=== PATIENT | male | born 1930 | race Caucasian/White ===

== ENCOUNTER → 2017-08-20 | Outpatient (CLI) | payer MEDICARE, OTHER ==
[2017-08-20 08:54] LABS: HEMATOCRIT 31.1 % (42.0-52.0); HEMOGLOBIN 10.8 gm/dL (14.0-18.0)
[2017-08-20 09:08] LABS: ALBUMIN 3.1 g/dL (3.4-5.0); CALCIUM 9.5 mg/dL (8.5-10.1); PHOSPHORUS* 3.2 mg/dL (2.5-4.9); TOTAL BILIRUBIN 0.4 mg/dL (<0.1-1.0); TOTAL PROTEIN 7.1 g/dL (6.4-8.2)
[2017-08-20 19:09] LABS: PARATHYROID HORMONE 47 pg/mL (15-65); eGFR IF AFRICAN AMERICAN 38 (>59)
== END ==
LOC: M.LAB 08:33
PROVIDERS: Internal Medicine Nephrology
DX: N18.3 Chronic kidney disease, stage 3 (moderate) (principal)

== ENCOUNTER → 2018-06-01 | Outpatient (CLI) | payer MEDICARE, OTHER ==
[2018-06-01 09:42] LABS: ABSOLUTE BASOPHILS 0.1 thou/uL (0.0-0.2); ABSOLUTE MONOCYTES 0.4 thou/uL (0.0-1.2); ABSOLUTE NEUTROPHILS 2.7 thou/uL (1.6-8.1); BASOPHILS 1.4 %; EOSINOPHILS 0.9 %; HEMATOCRIT 34.2 % (42.0-52.0); HEMOGLOBIN 11.7 gm/dL (14.0-18.0); LYMPHOCYTES 24.5 %; MCH 34.1 pg (26.0-34.0); MCHC 34.3 g/dL (28.0-37.0); MCV 99.5 fL (80.0-100.0); MONOCYTES 8.4 %; NUCLEATED RBCS 0 /100WBC; PLATELET COUNT* 120 thou/uL (150-400); POLYS 64.8 %; RBC 3.43 mil/uL (4.50-6.00); RDW-CV 15.7 % (10.5-14.5); WBC 4.2 thou/uL (4.0-11.0)
[2018-06-01 10:20] LABS: ALBUMIN 3.6 g/dL (3.4-5.0); CALCIUM 9.5 mg/dL (8.5-10.1); PHOSPHORUS* 3.2 mg/dL (2.5-4.9); POTASSIUM 4.4 mmol/L (3.5-5.1)
[2018-06-01 19:11] LABS: eGFR IF AFRICAN AMERICAN 34 (>59)
[2018-06-02 15:08] LABS: PARATHYROID HORMONE 99 pg/mL (15-65)
== END ==
LOC: M.LAB 09:19
PROVIDERS: Internal Medicine Nephrology
DX: I12.9 Hypertensive chronic kidney disease with stage 1 through stage 4 chronic kidney disease, or unspecified chronic kidney disease (principal); N18.9 Chronic kidney disease, unspecified

== ENCOUNTER → 2018-12-30 | Outpatient (CLI) | payer MEDICARE, OTHER ==
[2018-12-30 11:09] LABS: ABSOLUTE EOSINOPHILS 0.1 thou/uL (0.0-0.7); ABSOLUTE LYMPHOCYTES 1.1 thou/uL (0.8-5.3); ABSOLUTE MONOCYTES 0.4 thou/uL (0.0-1.2); ABSOLUTE NEUTROPHILS 2.8 thou/uL (1.6-8.1); BASOPHILS 0.9 %; EOSINOPHILS 1.4 %; HEMATOCRIT 32.2 % (42.0-52.0); HEMOGLOBIN 11.2 gm/dL (14.0-18.0); LYMPHOCYTES 24.8 %; MCH 34.1 pg (26.0-34.0); MCHC 34.6 g/dL (28.0-37.0); MCV 98.4 fL (80.0-100.0); MONOCYTES 9.3 %; MPV 7.4 fl. (7.2-11.1); NUCLEATED RBCS 0 /100WBC; PLATELET COUNT* 125 thou/uL (150-400); POLYS 63.6 %; RBC 3.27 mil/uL (4.50-6.00); WBC 4.3 thou/uL (4.0-11.0)
[2018-12-30 11:25] LABS: ALBUMIN 3.5 g/dL (3.4-5.0); CALCIUM 9.2 mg/dL (8.5-10.1); CREATININE 1.8 mg/dL (0.6-1.3); PHOSPHORUS* 3.4 mg/dL (2.5-4.9); POTASSIUM 4.5 mmol/L (3.5-5.1)
[2018-12-30 11:47] LABS: CREATININE 1.8 mg/dL (0.6-1.3); PHOSPHORUS* 3.3 mg/dL (2.5-4.9)
== END ==
LOC: M.LAB 10:48
PROVIDERS: Nurse Practitioner Family
DX: N18.3 Chronic kidney disease, stage 3 (moderate) (principal)

== ENCOUNTER → 2019-06-17 | Outpatient (CLI) | payer MEDICARE, OTHER ==
[2019-06-17 09:35] LABS: ABSOLUTE BASOPHILS 0.1 thou/uL (0.0-0.2); ABSOLUTE EOSINOPHILS 0.1 thou/uL (0.0-0.7); ABSOLUTE LYMPHOCYTES 1.2 thou/uL (0.8-5.3); ABSOLUTE MONOCYTES 0.4 thou/uL (0.0-1.2); ABSOLUTE NEUTROPHILS 2.9 thou/uL (1.6-8.1); BASOPHILS 1.3 %; EOSINOPHILS 1.3 %; HEMATOCRIT 33.8 % (42.0-52.0); HEMOGLOBIN 11.9 gm/dL (14.0-18.0); LYMPHOCYTES 26.5 %; MCH 34.6 pg (26.0-34.0); MCHC 35.1 g/dL (28.0-37.0); MCV 98.6 fL (80.0-100.0); MONOCYTES 8.7 %; MPV 7.4 fl. (7.2-11.1); NUCLEATED RBCS 0 /100WBC; PLATELET COUNT* 145 thou/uL (150-400); POLYS 62.2 %; RBC 3.43 mil/uL (4.50-6.00); RDW-CV 15.8 % (10.5-14.5); WBC 4.7 thou/uL (4.0-11.0)
[2019-06-17 09:48] LABS: ALBUMIN 3.9 g/dL (3.4-5.0); CALCIUM 9.9 mg/dL (8.5-10.1); CREATININE 2.1 mg/dL (0.6-1.3); PHOSPHORUS* 3.6 mg/dL (2.5-4.9); POTASSIUM 4.8 mmol/L (3.5-5.1); TOTAL BILIRUBIN 0.5 mg/dL (<0.1-1.0); TOTAL PROTEIN 7.7 g/dL (6.4-8.2)
[2019-06-17 09:55] LABS: CALCIUM 9.8 mg/dL (8.5-10.1); CREATININE 2.1 mg/dL (0.6-1.3); PHOSPHORUS* 3.6 mg/dL (2.5-4.9)
== END ==
LOC: M.LAB 08:46
PROVIDERS: Internal Medicine Nephrology
DX: N25.81 Secondary hyperparathyroidism of renal origin (principal); N18.3 Chronic kidney disease, stage 3 (moderate)